=== PATIENT | male | born 2000 | race Caucasian/White ===

== ENCOUNTER 2020-09-26 13:39 | Emergency (ER) | payer OTHER ==
[2020-09-26 14:01] VITALS: BP 122/75; PULSE 103; RESP 17; TEMP 98.9
--- NOTE | 2020-09-26 15:50 | US ---
EXAMINATION TYPE: US abdomen limited DATE OF EXAM: 09/26/2020 COMPARISON: NONE CLINICAL HISTORY: possible abdominal hernia? right mid abdomen. EXAM MEASUREMENTS: Liver Length: 14.6 cm Gallbladder Wall: .2 cm CBD: .3 cm Right Kidney: 11.2 x 4.2 x 5.2 cm Pancreas: wnl Liver: wnl Gallbladder: wnl Evidence for sonographic Wells's sign: No CBD: wnl Right Kidney: wnl IMPRESSION: Unremarkable study.
--- NOTE | 2020-09-26 16:13 | ED ---
Abdominal Pain HPI - General Chief Complaint: Abdominal Pain Stated Complaint: [facility]-abd pain Time Seen by Provider: 09/26/20 14:23 Source: patient Mode of arrival: ambulatory Limitations: no limitations - History of Present Illness Initial Comments: 20yo males presenting for cc of right sided abdominal pain. pt states that he threw a dressor and felt a pop in ight side of abdomen. denies hx of hernia. denies nausea, vomiting, diarrhea, fevers. Pt denies experiencing this in the past. pt has no additional complaints. remaining ROS (-) - Related Data Allergies Allergy/AdvReac Type Severity Reaction Status Date / Time No Known Allergies Allergy Verified 09/26/20 14:01 Review of Systems ROS Statement: Those systems with pertinent positive or pertinent negative responses have been documented in the HPI. ROS Other: All systems not noted in ROS Statement are negative. Past Medical History Past Medical History: No Reported History History of Any Multi-Drug Resistant Organisms: None Reported Past Surgical History: No Surgical Hx Reported Past Psychological History: No Psychological Hx Reported Smoking Status: Current every day smoker, Vaper Past Alcohol Use History: Rare Past Drug Use History: Marijuana General Exam - General Exam Comments Initial Comments: General: The patient is awake and alert, in no distress Eye: +3mm pupils are equal, round and reactive to light, extra-ocular movements are intact. No nystagmus. There is normal conjunctiva bilaterally. No signs of icterus. Ears, nose, mouth and throat: There are moist mucous membranes and no oral lesions. Neck: The neck is supple, there is no tenderness or JVD. Cardiovascular: There is a regular rate and rhythm. No murmur, rub or gallop is appreciated. Respiratory: Lungs are clear to auscultation, respirations are non-labored, breath sounds are equal. No wheezes, stridor, rales, or rhonchi. Gastrointestinal: Soft, non-distended, tenderness mid abdomen, small localized area, there is no palpable defect in abdominal wall nor palpable ventral hernia. abdomen without masses or organomegaly noted. There is no rebound or guarding present. Musculoskeletal: Normal ROM, no tenderness. Strength 5/5. Sensation intact. Radial and DP pulses equal bilaterally 2+. Neurological: A&O x 3. CN II-XII intact grossly, There are no obvious motor or sensory deficits. Coordination appears grossly intact. Speech is normal. Skin: Skin is warm and dry and no rashes or lesions are noted. Psychiatric: Cooperative, appropriate mood & affect, normal judgment. Limitations: no limitations Course Vital Signs 09/26/20 13:57 Temperature 98.9 F Pulse Rate 103 H Respiratory 17 Rate Blood Pressure 122/75 O2 Sat by Pulse 98 Oximetry Medical Decision Making - Medical Decision Making US (-). us was performed over area of concern per patient. patient felt to have muscular strain. no severe pain. if pain persists/worsening develops constipatin or nausea he is to return patient advised to rest and avoid heavy lifting. pt discharged appearing gwell agreeable to this care plan. Attending Dr. Huggins is agreeable to this care plan as well. Disposition Clinical Impression: Abdominal wall strain, Abdominal pain Disposition: HOME SELF-CARE Condition: Good Instructions (If sedation given, give patient instructions): Abdominal Pain (ED) Additional Instructions: Please use medication as discussed. Please follow-up with family doctor in the next 2 days.. Please return to emergency room if the symptoms increase or worsen or for any other concerns. Is patient prescribed a controlled substance at d/c from ED?: No Referrals: None,Stated [Primary Care Provider] - 1-2 days Time of Disposition: 16:13
== END 2020-09-26 16:22 | disposition home or self-care (01) ==
LOC: EC 13:39
DX: S39.011A Strain of muscle, fascia and tendon of abdomen, initial encounter (principal); F17.200 Nicotine dependence, unspecified, uncomplicated; X50.9XXA Other and unspecified overexertion or strenuous movements or postures, initial encounter; F12.90 Cannabis use, unspecified, uncomplicated
CPT/HCPCS: 76705; 99284